=== PATIENT | female | born 1940 | race Caucasian/White ===

== ENCOUNTER → 2023-08-26 | Outpatient (CLI) | payer MEDICARE ==
[2023-08-27 13:33] LABS: Source, Urine Voided
[2023-08-27 15:16] LABS: Appearance, Urine Hazy (Clear); Bilirubin, Urine Neg (Neg); Blood, Urine Neg (Neg); Color, Urine Yellow (P-Yellow); Glucose Qualitative, Urine Neg (Neg); Ketones, Urine Neg (Neg); Leukocyte Esterase, Urine 1+ (Neg); Nitrite, Urine Neg (Neg); Protein, Urine Neg (Neg); Urobilinogen, Urine NORM (Normal)
[2023-08-27 15:28] LABS: Bacteria Few /hpf; Calcium Oxalate Crystals Few /hpf; Red Blood Cells, Urine 0-2 /hpf (0-2); Squamous Epithelial Cells Few /hpf (Few)
== END ==
LOC: LAB 13:27 → LAB SHORT 13:27
PROVIDERS: Nurse Practitioner Family
DX: N39.0 Urinary tract infection, site not specified (principal)
CPT/HCPCS: 81001; 87086

== ENCOUNTER 2023-09-24 10:16 | Emergency (ER) | payer MEDICARE ==
[~2023-09-24] VITALS: Ht 162.6 cm; Wt 73.6 kg
[2023-09-24 10:53] LABS: BASOPHILS ABSOLUTE AUTO 0.05 K/mm3 (0.00-0.23); BASOPHILS PERCENT AUTO 1 % (0-2); EOSINOPHILS ABSOLUTE AUTO 0.15 K/mm3 (0.00-0.68); EOSINOPHILS PERCENT AUTO 2 % (0-6); Hematocrit 39.2 % (33.0-51.0); Hemoglobin 12.7 g/dL (11.5-16.0); IMMATURE GRAN ABSOLUTE AUTO 0.02 K/mm3 (0.00-0.10); IMMATURE GRAN PERCENT AUTO 0 % (0-1); LYMPHOCYTES ABSOLUTE AUTO 2.04 K/mm3 (0.84-5.20); LYMPHOCYTES PERCENT AUTO 28 % (21-46); MONOCYTES ABSOLUTE AUTO 0.76 K/mm3 (0.16-1.47); MONOCYTES PERCENT AUTO 10 % (4-13); Mean Corpuscular HGB 30.8 pg (26.0-34.0); Mean Corpuscular HGB Conc 32.4 g/dL (31.5-36.5); Mean Corpuscular Volume 95 fL (80-100); Mean Platelet Volume 9.5 fL (9.1-12.4); NEUTROPHILS ABSOLUTE AUTO 4.36 K/mm3 (1.96-9.15); NEUTROPHILS PERCENT AUTO 59 % (41-73); Platelet Count 230 K/mm3 (150-400); RDW Coefficient Variation 13.5 % (11.7-14.2); RDW Standard Deviation 47.8 fL (35.1-46.3); Red Blood Cell Count 4.12 M/mm3 (3.80-5.20); White Blood Cell Count 7.38 K/mm3 (4.00-11.30)
[2023-09-24] MEDS ORDERED: AMLO5 PO (11:02)
[2023-09-24] MEDS ORDERED: MASOPHEN500 M3 PO (11:02)
[2023-09-24] MEDS ORDERED: Isosorbide Mono30 MG PO (11:03)
[2023-09-24] MEDS ORDERED: Flonase 0.05% N16 GM (11:03)
[2023-09-24] MEDS ORDERED: EUTHYROX50 MCG PO (11:04)
[2023-09-24] MEDS ORDERED: MEMA10 PO (11:04)
[2023-09-24] MEDS ORDERED: MELATONIN5 M1 PO (11:04)
[2023-09-24] MEDS ORDERED: METO25ER PO (11:06)
[2023-09-24] MEDS ORDERED: MIRT15 PO (11:06)
[2023-09-24] MEDS ORDERED: POLYETHYLENE G500 G1 PO (11:07)
[2023-09-24] MEDS ORDERED: NITR.4SL SL (11:07)
[2023-09-24] MEDS ORDERED: ZINC OXIDE (11:08)
[2023-09-24] MEDS ORDERED: SENNA LAXATIVE8.6 MG PO (11:08)
[2023-09-24] MEDS ORDERED: QUET25 PO (11:08)
[2023-09-24] MEDS ORDERED: SERT50 PO (11:09)
[2023-09-24 11:26] LABS: Albumin, Blood 3.8 g/dL (3.4-5.0); Albumin/Globulin Ratio 0.9 (0.8-1.8); Bilirubin, Total 0.4 mg/dL (0.1-1.0); Bun/Creatinine Ratio 23.6 (12.0-20.0); Calcium, Blood 8.9 mg/dL (8.5-10.1); Creatinine, Blood 0.8 mg/dL (0.40-1.00); Globulin, Blood 4.1 g/dL (2.2-4.0); Potassium, Blood 3.7 mmol/L (3.5-5.5); Total Protein, Blood 7.9 g/dL (6.4-8.2)
[2023-09-24 12:08] LABS: Source, Urine Straight Cath
[2023-09-24 12:15] LABS: Appearance, Urine Clear (Clear); Bilirubin, Urine Neg (Neg); Blood, Urine Neg (Neg); Color, Urine Yellow (P-Yellow); Glucose Qualitative, Urine Neg (Neg); Ketones, Urine Neg (Neg); Leukocyte Esterase, Urine 1+ (Neg); Nitrite, Urine Neg (Neg); Protein, Urine 1+ (Neg); Specific Gravity, Urine 1.015 (1.003-1.022); Urobilinogen, Urine NORM (Normal); pH, Urine 6.5 (5.0-8.0)
[2023-09-24 12:25] LABS: Bacteria Mod /hpf; Red Blood Cells, Urine 0-2 /hpf (0-2); Squamous Epithelial Cells Rare /hpf (Few)
[2023-09-24 12:30] VITALS: BP 147/64
[2023-09-24 12:51] LABS: Influenza A, PCR NEGATIVE (NEGATIVE); Influenza B, PCR NEGATIVE (NEGATIVE); Resp Syncytial Virus, PCR NEGATIVE (NEGATIVE); SARS-Cov-2 (COVID-19) PCR, MMC NEGATIVE (NEGATIVE)
[2023-09-24] MEDS ORDERED: CefTRIAXone Sodium 1,000 MG in NS 50 ML IV ONE (13:15)
[2023-09-24] MEDS ORDERED: CEPH500 PO (13:17)
== END 2023-09-24 14:43 | disposition home or self-care (01) ==
LOC: ER 10:16
PROVIDERS: Emergency Medicine
DX: R55 Syncope and collapse (principal); R00.1 Bradycardia, unspecified; N39.0 Urinary tract infection, site not specified; Z88.5 Allergy status to narcotic agent; Z88.8 Allergy status to other drugs, medicaments and biological substances; Z79.51 Long term (current) use of inhaled steroids; Z79.899 Other long term (current) drug therapy
CPT/HCPCS: 0241U; 80053; 81001; 85025; 87086; 93005; 93010; 96365; 99284-25; J0696; P9612

== ENCOUNTER → 2023-10-22 | Outpatient (CLI) | payer MEDICARE ==
[~2023-10-22] MED LIST: AMLO5 PO; CEPH500 PO; EUTHYROX50 MCG PO; Flonase 0.05% N16 GM; Isosorbide Mono30 MG PO; MASOPHEN500 M3 PO; MELATONIN5 M1 PO; MEMA10 PO; METO25ER PO; MIRT15 PO; NITR.4SL SL; POLYETHYLENE G500 G1 PO; QUET25 PO; SENNA LAXATIVE8.6 MG PO; SERT50 PO; ZINC OXIDE
== END ==
LOC: LAB 16:48 → LAB SHORT 16:48
DX: N39.46 Mixed incontinence (principal)
CPT/HCPCS: 87077; 87086; 87186